=== PATIENT | male | born 1995 | race Caucasian/White ===

== ENCOUNTER 2017-01-22 06:44 | Emergency (ER) | payer OTHER ==
[2017-01-22 06:55] VITALS: BP 137/94; PULSE 90; RESP 16; TEMP 97.7; O2SAT 99
--- NOTE | 2017-01-22 07:24 | EDPHY ---
H & P Time Seen by Provider: 01/22/17 07:19 HPI/ROS: CHIEF COMPLAINT: Left ear pain HISTORY OF PRESENT ILLNESS: This patient is a 21 year old man presenting with a one week history of left ear pain, moderate in severity. It is associated with ear drainage. He saw his primary care provider Monday who prescribed Augmentin, however the pain has still persisted. He took 400mg ibuprofen for pain relief. The patient has history of frequent otitis media as a child. REVIEW OF SYSTEMS: Constitutional: No fever, no chills Eyes: No visual changes ENT: Left ear pain with drainage, recent sore throat Respiratory: No cough, no shortness of breath Cardiac: No chest pain Musculoskeletal: No leg pain or swelling Skin: No rash Neurological: No headache Psychiatric: No depression Past Medical/Surgical History: Remote history of frequent otitis media as a child Social History: Non-smoker Smoking Status: Never smoked Physical Exam: General Appearance: Alert, non-toxic Eyes: Pupils equal and round, no conjunctival injection ENT, Mouth: Left TM is erythematous and scarred. There is drainage present in the ear canal. No TM rupture identified. Mucous membranes moist, no pharyngeal erythema Neck: Normal inspection Respiratory: Lungs are clear to auscultation Cardiovascular: Regular rate and rhythm Neurological: A&O, nonfocal, normal gait Skin: Warm and dry, no rash Extremities: normal inspection Psychiatric: Mood and affect normal Constitutional: Initial Vital Signs Temperature (C) 36.5 C 01/22/17 06:53 Heart Rate 90 01/22/17 06:53 Respiratory Rate 16 01/22/17 06:53 Blood Pressure 137/94 H 01/22/17 06:53 O2 Sat (%) 99 01/22/17 06:53 O2 Delivery Mode Room Air Allergies/Adverse Reactions: No Known Allergies Allergy (Verified 01/22/17 06:55) Home Medications: Medication Instructions Recorded Amoxicillin/Clavulanate Pot 875 mg PO BID 01/22/17 [Augmentin 875 MG TAB (*)] Neomy Sulf/Polymyx B Sulf/Hc 2 drops OT TID #1 otic.btl 01/22/17 [Cortisporin Otic Suspension] Medical Decision Making ED Course/Re-evaluation: Patient presents with one week of left ear pain, persistent after 4 days of Augmentin. Left TM is injected and scarred on exam. There is drainage in the ear canal. No rupture is identified, however inspection is limited secondary to scarring, and rupture is likely given his history. I have prescribed antibiotic ear drops. Will continue Augmentin. Recommended 600mg ibuprofen every 6-8 hours for pain relief. He has received 400mg ibuprofen in the ED (he took 400mg ibuprofen 2 hours ago). I have referred him to an ENT specialist, to be seen within one week. - Data Points Medications Given: Discontinued Medications Hydrocodone Bitart/Acetaminophen ([place] 5/325mg Prepack#6) 1 btl TAKEHOME EDNOW ONE Stop: 01/22/17 07:27 Last Admin: 01/22/17 07:30 Dose: 1 btl Departure - Departure Disposition: Home, Routine, Self-Care Clinical Impression: Otitis media Qualifiers: Otitis media type: suppurative Laterality: left Chronicity: acute Recurrence: not specified as recurrent Spontaneous tympanic membrane rupture: with spontaneous rupture Qualified Code(s): H66.012 - Acute suppurative otitis media with spontaneous rupture of ear drum, left ear Condition: Good Instructions: Otitis Media (ED) Additional Instructions: Use the antibiotic ear drops as prescribed. Continue the Augmentin until the full course is completed. Take ibuprofen as instructed for pain relief. Please follow up with an ENT specialist within one week. Return for worsening symptoms , fever, change in hearing, or other concerns. Adult Pain & Fever Control: We recommend Acetaminophen (Tylenol) and Ibuprofen (Motrin,Advil) for pain and fever control. When fever is high or pain severe, both drugs can be used at the same time, but at different intervals. Please note the time differences. Your dose is: Acetaminophen 650mg every 4 to 6 hours Ibuprofen 600mg every 6-8 hours with food Note: do not take Acetaminophen with Hydrocodone (Vicodin, Lortab) or Oycodone (Percocet). These medications also contain Acetaminophen. No more than 3000mg of Acetaminophen should be taken in 24 hours (for an adult). Referrals: Bianca Clark MD [Medical Doctor] - As per Instructions Prescriptions: Neomy Sulf/Polymyx B Sulf/Hc [Cortisporin Otic Suspension] 2 drops OT TID #1 otic.btl Report Scribed for: Jessica Benitez Report Scribed by: Bonita Mccall Date of Report: 01/22/17 Time of Report: 07:24 Physician Review and Approval Statement: 01/22/17 07:24 Portions of this note were transcribed by a medical billing supervisor. I personally performed a history, physical exam, medical decision making, and confirmed accuracy of information the transcribed note.
[2017-01-22] MEDS ORDERED: HYDROCOD/APAP 5/325 PREPACK#6 BTL TAKEHOME ONE (07:26)
== END 2017-01-22 07:45 | disposition home or self-care (01) ==
DX: H66.012 Acute suppurative otitis media with spontaneous rupture of ear drum, left ear (principal)

== ENCOUNTER 2018-12-01 16:30 | Emergency (ER) | payer MEDICAID ==
[2018-12-01 16:40] VITALS: BP 148/81
--- NOTE | 2018-12-01 17:11 | EDPHY ---
H & P Stated Complaint: L EAR PAIN. Time Seen by Provider: 12/01/18 17:04 HPI/ROS: CHIEF COMPLAINT: Left otalgia x2 days HISTORY OF PRESENT ILLNESS: 23-year-old immunocompetent male history of recurrent left ear infections complaining of 2 days of left otalgia. No barotrauma history. No chest pain. No dyspnea. No sore throat. No facial pain. No headache. No nausea or vomiting. No facial or scalp vesicles. REVIEW OF SYSTEMS: 10 systems reviewed and negative with the exception of the elements mentioned in the history of present illness PAST MEDICAL & SURGICAL HISTORY: recurrent left ear infections SOCIAL HISTORY: Nonsmoker PHYSICAL EXAM (Prior to examination, patient consented to physical exam, hands were washed and my usual and customary physical exam procedures followed) 1) GENERAL: Well-developed, well-nourished, alert and oriented. Appears to be in no acute distress. Appears nontoxic 2) HEAD: Normocephalic, atraumatic 3) HEENT: Pupils equal, round, reactive to light bilaterally. Sclera anicteric. Nasopharynx, oropharynx, clear, no lesions. Moist Mucous membranes. No tonsillar enlargement or exudate. No trismus no drooling. No facial or scalp lesions or vesicles. Right ear: Clear EAC, nonbulging non erythematous tympanic membrane. Mastoid non hat and cap opener Bong boggy. Left ear: Pain with movement of the tragus and auricle, diffuse erythema to the left external auditory canal with no debris, erythema to the left tympanic membrane with no evidence of gross perforation. Hearing intact and symmetrical 4) NECK: Full range of motion, no meningeal signs. 5) LUNGS: Clear auscultation bilaterally, no wheezes, no rhonchi, no retractions. 6) HEART: Regular rate and rhythm, no murmur, no heave, no gallop. 7) ABDOMEN: No guarding, no rebound, no focal tenderness, negative McBurney's, negative Mauro's, negative Rovsing's, negative peritoneal sign, 8) MUSCULOSKELETAL: Moving all extremities, no focal areas of tenderness, no obvious trauma. No peripheral edema or discoloration. 9) BACK: No CVA tenderness, no midline vertebral tenderness, no fluctuance, no step-off, no obvious trauma, no visual or palpable abnormality. 10) SKIN: No rash, no petechiae. 11) Psychiatric: Patient is oriented X 3, there is no agitation. DIFFERENTIAL DIAGNOSIS: In no particular order include but limited to otitis media, otitis externa, mastoiditis, otitis media with perforation - Personal History Current Tetanus/Diphtheria Vaccine: Unsure Current Tetanus Diphtheria and Acellular Pertussis (TDAP): Unsure - Medical/Surgical History Hx Asthma: No Hx Chronic Respiratory Disease: No Hx Diabetes: No Hx Cardiac Disease: No Hx Renal Disease: No Hx Cirrhosis: No Hx Alcoholism: No Hx HIV/AIDS: No Hx Splenectomy or Spleen Trauma: No Other PMH: ADHD, Prev ear issues. - Social History Smoking Status: Never smoked Constitutional: Initial Vital Signs Temperature (C) 36.4 C 12/01/18 16:36 Heart Rate 71 12/01/18 16:36 Respiratory Rate 16 12/01/18 16:36 Blood Pressure 148/81 H 12/01/18 16:36 O2 Sat (%) 97 12/01/18 16:36 O2 Delivery Mode Room Air Allergies/Adverse Reactions: No Known Allergies Allergy (Verified 12/01/18 16:40) Home Medications: Medication Instructions Recorded Amoxicillin/Clavulanate Pot 875 mg PO BID #14 tab 12/01/18 [Augmentin 875 mg tab] Ciprofloxacin HCl/Dexameth 4 drop OT BID #1 drops.susp 12/01/18 [Ciprodex Otic Suspension] Medical Decision Making ED Course/Re-evaluation: Patient has evidence of left otitis media and left otitis externa without evidence of malignant otitis externa. Doubt mastoiditis. Doubt meningitis. Doubt sepsis. Prescribed antibiotics and recommend follow up with ENT especially as he notes history of recurrent left ear infections. No hearing loss. No gait instability. Given my usual and customary discharge precautions instructions. Care of patient under supervision of secondary supervising physician Dr Overton . Departure - Departure Disposition: Home, Routine, Self-Care Clinical Impression: Left otitis media Qualifiers: Otitis media type: unspecified Qualified Code(s): H66.92 - Otitis media, unspecified, left ear Left otitis externa Qualifiers: Otitis externa type: other infective Chronicity: acute Qualified Code(s): H60.392 - Other infective otitis externa, left ear Condition: Good Instructions: Otitis Externa (ED), Ear Infection (ED) Additional Instructions: Return to the ER if you develop new or worsening symptoms, if you develop ear drainage or any other symptoms that concern you. Referrals: Rohini Mckinnon MD [Medical Doctor] - 2-3 days, call for appt. Prescriptions: Amoxicillin/Clavulanate Pot [Augmentin 875 mg tab] 875 mg PO BID #14 tab Ciprofloxacin HCl/Dexameth [Ciprodex Otic Suspension] 4 drop OT BID #1 drops.susp
== END 2018-12-01 17:21 | disposition home or self-care (01) ==
DX: H66.92 Otitis media, unspecified, left ear (principal); H60.392 Other infective otitis externa, left ear